=== PATIENT | female | born 1975 | race Caucasian/White ===

== ENCOUNTER 2024-01-30 08:04 | Outpatient (CLI) | payer OTHER, SELFPAY | END 2024-01-30 08:05 | disposition home or self-care (01) | LOC: NFLDREF 02-14 17:02 | PROVIDERS: Visit Provider Physician Assistant | DX: R53.83 Other fatigue (principal); Z13.228 Encounter for screening for other metabolic disorders; Z13.220 Encounter for screening for lipoid disorders; Z13.21 Encounter for screening for nutritional disorder; Z13.29 Encounter for screening for other suspected endocrine disorder | CPT/HCPCS: 80053; 80061; 82306; 84443 ==

== ENCOUNTER 2024-02-17 14:55 | Outpatient (CLI) | payer OTHER, SELFPAY ==
--- NOTE | 2024-02-17 15:20 | CRLHL7_ITS ---
For Patients: As a result of the Century Cures Act, medical imaging exams and procedure reports are released immediately into your electronic medical record. You may view this report before your referring provider. If you have questions, please contact your health care provider. BILATERAL SCREENING MAMMOGRAM WITH COMPUTER-AIDED DETECTION AND TOMOSYNTHESIS TECHNIQUE: CC and MLO views were obtained. These mammographic images have been obtained using full-field digital technique. These mammographic images were interpreted with the benefit of computer-aided detection. Breast Tomosynthesis was used in this interpretation. COMPARISON FILM: 08/18/21, 12/21/18. FINDINGS: The breasts are extremely dense, which lowers the sensitivity of mammography. IMPRESSION: There is no radiographic evidence for malignancy. ASSESSMENT: BI-RADS Category 2: Benign RECOMMENDATION: Routine screening mammogram in 1 year. A lay language report of this examination will be provided to the patient. Arsalan Nieto M.D. Diagnostic Radiologist [email or web address] SP/Dictated by: Arsalan Nieto MD @ 02/27/2024 9:59:00 AM (Electronically Signed)
== END 2024-02-17 14:56 | disposition home or self-care (01) ==
LOC: MAMMO 14:56
PROVIDERS: Visit Provider Physician Assistant
DX: Z12.31 Encounter for screening mammogram for malignant neoplasm of breast (principal); R92.2 Inconclusive mammogram
CPT/HCPCS: 77063; 77067

== ENCOUNTER 2024-02-24 07:31 | Outpatient (CLI) | payer OTHER, SELFPAY ==
--- NOTE | 2024-02-24 08:29 | W.ANESCHARGE ---
Anesthesia Charges Start Date/Time Anesthesia Start Date: 02/24/24 Anesthesia Start Time: 08:25 Stop Date/Time Anesthesia Stop Date: 02/24/24 Anesthesia Stop Time: 08:58
--- NOTE | 2024-02-24 08:58 | W.ANESCHARGE ---
Anesthesia Charges Start Date/Time Anesthesia Start Date: 02/24/24 Anesthesia Start Time: 08:25 Stop Date/Time Anesthesia Stop Date: 02/24/24 Anesthesia Stop Time: 08:58
--- NOTE | 2024-02-28 11:20 | W.ANESCHARGE ---
Anesthesia Charges Start Date/Time Anesthesia Start Date: 02/24/24 Anesthesia Start Time: 08:25 Stop Date/Time Anesthesia Stop Date: 02/24/24 Anesthesia Stop Time: 08:58
== END 2024-02-24 07:32 | disposition home or self-care (01) ==
LOC: OP CLINIC 07:32
PROVIDERS: PCP Physician Assistant; Visit Provider Internal Medicine
DX: Z12.11 Encounter for screening for malignant neoplasm of colon (principal); K63.5 Polyp of colon
CPT/HCPCS: 00811; 45380; 88305; J2704

== ENCOUNTER 2025-08-21 10:47 | Emergency (ER) | payer OTHER, SELFPAY ==
[2025-08-21 10:49] VITALS: BP 114/78; PULSE 72; RESP 18; TEMP 37.2; O2SAT 99
--- OUTSIDE RECORDS SUMMARY | 2025-08-21 10:49 | XMS_ITS | Clinical Summary ---
Author Organization [facility] Address [address] [place] [id number] Phone [email or web address] Care Team Providers Care Librarian Head Name Role Phone Unavailable Primary Care Provider Unavailabl e Immunizations ImmunizationAdministration DatesNext DueInfluenza (Flucelvax) MDCK, PF, quad (CVX-171)05/30/2018Influenza single-dose SYRINGE (Afluria, Fluarix, Fluzone, Flulaval) trivalent (CVX-140)06/28/2016Influenza, (Afluria Fluzone) quad, PF, 6- 35 mo (CVX-161)06/14/2017 Social History Tobacco UseTypesPacks/DayYears UsedDateSmoking Tobacco: Never AssessedIntimate Partner ViolenceAnswerDate RecordedInsults YouNot on file12/09/2020Threatens You Not on file12/09/2020creams at YouNot on file1Physically HurtNot on file12/09/2020Intimate Partner Violence ScoreNot on file12/09/2020tressAnswer Date RecordedStress in your [id number] with StressNot on file 1CommentsUnknownSex and Gender InformationValueDate RecordedSex Assigned at BirthNot on fileLegal ExgTzkxlh36/26/2018 8:09 AM CDTGender Identity Not on fileSexual OrientationNot on file Plan of Treatment Health MaintenanceDue DateLast DoneCommentsCT Aoydczpwrrrk1977Cervical Cancer Screening Combo1977 5008Ojgjjiclvmi1977Colorectal Cancer Screening Combo1977DNA Mceoegbxp1977FIT or FOBT Test1977HPV only / HPV + Pap1977Pap only iyktkrg97 1977 3496Idsnparcvvypw1977Hepatitis B Immunization (1 of 3 - 19+ 3-dose series)01/29/1996Tetanus Diphtheria and Pertussis Immunization (1 - Tdap)01/29/1996Breast Cancer Undpsiueg07/02/2007 Covid-19 Immunization (1 - 2024- season)2025Influenza Immunization (#1) , 06/14/2017, 06/28/2016HIB ImmunizationAged OutNo longer eligible based on patient's age to complete this topicHPV ImmunizationAged OutNo longer eligible based on patient's age to complete this topicHepatitis A ImmunizationAged OutNo longer eligible based on patient's age to complete this topicPneumococcal ImmunizationAged OutNo longer eligible based on patient's age to complete this topicPolio ImmunizationAged OutNo longer eligible based on patient's age to complete this topic
--- NOTE | 2025-08-21 11:18 | ED.GENADULT ---
HPI - General Adult General Chief complaint: Weakness Stated complaint: Heaviness in chest, lost voice, tired, run down Time Seen by Provider: 08/21/25 11:18 History of Present Illness HPI narrative: Patient presents to the emergency department complaining of fatigue. Patient states yesterday she began to feel very fatigued, chest heaviness , and congestion. 50-year-old woman presenting to the emergency department with concern of some chest heaviness and sinus congestion and significant fatigue began yesterday. She is a runner and notes that she would be unable to do that at this point given how she feels. Has not had a fever. No diarrhea. No nausea or vomiting. No rashes. No particular exposures but has been running errands for the holidays. There was however exposure to her son and his new laser etcher. Apparently created a lot of smoke or particulate matter in the home. Does admit that is struggling with fatigue in general which she attributes to premenopausal symptoms. She also started losing her voice yesterday Related Data Previous Rx's ?Medication ?Instructions ?Recorded venlafaxine 150 mg 150 mg PO QDAY #90 caps 11/16/24 capsule,extended release 24 hr hydroxyzine pamoate 25 mg capsule 25 - 50 mg (1 - 2 x 25 mg) PO QHS 07/05/25 #90 caps progesterone micronized 200 mg 200 mg PO .COMPLEX 3 months #36 07/23/25 capsule (Prometrium) caps estradiol 0.05 mg/24 hr semiweekly 1 patch transdermal 2XW #24 ea 09/05/25 transdermal patch Allergies Allergy/AdvReac Type Severity Reaction Status Date / Time No Known Drug Allergies Allergy Verified 08/21/25 10:56 Review of Systems Status of ROS: Reports: 6 or more systems reviewed and unremarkable except as noted in History and below [facility] Medical History History of vaginal delivery Family History Father High cholesterol Mother Osteoporosis Chronic mental illness Social History Narrative: Mechanical Engineering Technologist. . Nonsmoker. 1-2 glasses of wine per week. Exam Narrative: Exam Narrative: Pleasant. NAD. Is mildly laryngitic. No stridor. Neck is supple without lymphadenopathy. Oropharynx with trace erythema posteriorly. Lungs are clear. Heart in regular rate and rhythm without murmur rub or gallop. Abdomen is soft nontender. Extremities are well perfused without edema. No facial swelling or erythema or tenderness. TMs are clear. Does sound congested in the nasopharynx Const: Vital Signs, click to edit/add: Vital Signs - 24 hr 08/21/25 10:49 Temperature 98.9 F Pulse Rate [Right Pulse Oximeter] 72 Respiratory Rate 18 Blood Pressure [Ri ght Upper Arm] 114/78 Pulse Oximetry 99 Oxygen Delivery Me thod Room Air Documenting provider has reviewed patient's vital signs: yes Course Vital Signs Vital signs: Initial Vital Signs Temperature 98.9 F 08/21/25 10:49 Temperature Source Temporal Artery Scan 08/21/25 10:49 Pulse Rate 72 08/21/25 10:49 Pulse Rhythm Regular 08/21/25 10:49 Pulse Strength 3+ Normal 08/21/25 10:49 Respiratory Rate 18 08/21/25 10:49 Blood Pressure 114/78 08/21/25 10:49 Blood Pressure Mean 90 08/21/25 10:49 Blood Pressure Position Sitting 08/21/25 10:49 Pulse Oximetry 99 08/21/25 10:49 Oxygen Delivery Method Room Air 08/21/25 10:49 Vital Signs Temperature 98.9 F 08/21/25 10:49 Pulse Rate 72 08/21/25 10:49 Respiratory Rate 18 08/21/25 10:49 Blood Pressure 114/78 08/21/25 10:49 Pulse Oximetry 99 08/21/25 10:49 Oxygen Delivery Method Room Air 08/21/25 10:49 Temperature 98.9 F 08/21/25 10:49 Pulse Rate 72 08/21/25 10:49 Respiratory Rate 18 08/21/25 10:49 Blood Pressure 114/78 08/21/25 10:49 Pulse Oximetry 99 08/21/25 10:49 Oxygen Delivery Method Room Air 08/21/25 10:49 Medical Decision Making MDM Narrative Medical decision making narrative: Considering community prevalence I would suspect influenza or possibly COVID. Would wait on the swab before proceeding with further evaluation at this point. She does not feel like she needs any interventions otherwise. Swabs are negative. With concern of exposure we could do a chest x-ray looking for some evidence of pulmonary edema though I do not appreciate this on physical exam nor in vitals. There has been concern of persistent fatigue as well. Can initiate this workup here but might require broader fatigue workup in primary care. Differential more immediately would include pulmonary embolus (quite unlikely in this patient I think), pneumothorax, infiltrate among others. Anemia otherwise. Electrolyte abnormalities? Vitamin deficiency? Lyme or similar? Anticipate treating laryngitis. View chest x-ray independently reviewed by me is unremarkable. No pneumothorax, no apparent infiltrate Radiology over-read below INDICATION: Weakness. Chest heaviness COMPARISON: None TECHNIQUE: PA and lateral views of the chest were acquired FINDINGS: TUBES AND LINES: None. HEART AND MEDIASTINUM: The heart size is normal. The mediastinal contour appears normal for patient age. LUNGS AND PLEURAL SPACES: The lungs appear normal.The pleural spaces are unremarkable. OSSEOUS STRUCTURES: Age-appropriate appearance. No acute focal finding. IMPRESSION: No evidence of active pulmonary disease. Dictated by Chato Soni MD @ 08/21/2025 12:25:21 PM Labs are reassuring Stable during time in the emergency department. See patient discharge plan for further discussion Focus on hydration. Consider ibuprofen or acetaminophen. Prescribing however course of prednisone at least for your laryngitis. Diphenhydramine might overcome some triggered wakefulness. If prednisone is not tolerable, can discontinue, discontinue course early if needed or cut dose in half. Prednisone from [facility]. Return for marked increase chest discomfort, worsening shortness of breath, lightheadedness. Lab Data Lab results reviewed: Yes I reviewed the patient's lab results Labs: Lab Results 08/21/25 08/21/25 08/21/25 Range/Units 11:00 12:09 12:26 WBC 9.13 (4.50-11.00) K/uL RBC 4.47 (4.00-5.20) m/uL Hgb 13.2 (12.0-16.0) gm/dL Hct 39.9 (33.0-51.0) % MCV 89 (80-100) fL MCH 30 (26-34) pg MCHC 33 (32-36) gm/dL RDW Coeff of Jenniffer 11.9 (11.5-15.5) % Plt Count 255 (140-440) K/uL Neut % (Auto) 76.8 H (42.0-72.0) % Lymph % (Auto) 13.8 L (20-44) % [place] % (Auto) 8.8 (0.0-11.0) % Eos % (Auto) 0.4 (0.0-7.0) % Baso % (Auto) 0.1 (0.0-3.0) % Neut # (Auto) 7.00 (1.7-7.0) K/uL Lymph # (Auto) 1.30 (0.90-2.90) K/uL [place] # (Auto) 0.80 (0.00-0.90) K/UL Eos # (Auto) 0.04 (0.00-0.50) K/uL Baso # (Auto) 0.01 (0.00-0.30) K/uL Abs Immat Gran (auto) 0.01 (0.00-0.30) K/uL Imm/Tot Granulo (auto) 0.1 % Sodium 135 (135-149) mmol/L Potassium 4.4 (3.6-5.1) mmol/L Chloride 104 (96-114) mmol/L Carbon Dioxide 28 (20-32) mmol/L Anion Gap 3 L (7-15) mEq/L BUN 9 (5-24) mg/dL Creatinine 1.0 (0.5-1.5) mg/dL Estimated GFR 69 ml/min Glucose 83 (60-115) mg/dL Calcium 9.8 (8.4-10.6) mg/dL Total Bilirubin 0.6 (0.1-1.5) mg/dL Direct Bilirubin 0.2 (0.0-0.5) mg/dL AST 31 (12-35) U/L ALT 26 (4-35) U/L Alkaline Phosphatase 60 (40-150) U/L POC Troponin I High Sensi < 2.9 L (2.9-13.0) pg/mL C-Reactive Protein < 0.5 L (0.5-1.0) mg/dL NT-Pro-B Natriuret Pep 144 (See Note) pg/mL Total Protein 7.1 (6.0-8.3) g/dL Albumin 4.3 (3.3-5.0) g/dL SARS-CoV-2 (PCR) Negative SARS-CoV-2 (Negative) Influenza Type A (PCR) Negative PCR FLU A (Negative) Influenza Type B (PCR) Negative PCR FLU B (Negative) RSV (PCR) Negative PCR RSV (Negative) Discharge Plan Discharge Clinical Impression: Laryngitis, Malaise Patient Disposition: Home w/ Parent or Adult Condition: Stable Additional Instructions: Focus on hydration. Consider ibuprofen or acetaminophen. Prescribing however course of prednisone at least for your laryngitis. Diphenhydramine might overcome some triggered wakefulness. If prednisone is not tolerable, can discontinue, discontinue course early if needed or cut dose in half. Prednisone from [facility]. Return for marked increase chest discomfort, worsening shortness of breath, lightheadedness. Prescriptions: No Action venlafaxine 150 mg capsule,extended release 24hr 150 mg PO QDAY Qty: 90 3RF hydroxyzine pamoate 25 mg capsule 25 - 50 mg PO QHS Qty: 90 3RF progesterone micronized [Prometrium] 200 mg capsule 200 mg PO .COMPLEX 90 Days Qty: 36 0RF Rx Instructions: 200 mg orally; Take 1 capsule at bedtime on cycle days 1-12 for 3 months estradiol 0.05 mg/24 hr patch semiweekly 1 patch transdermal 2XW Qty: 24 0RF Rx Instructions: 1 patch twice weekly Follow Up/Referrals: Provider,Not a Local [Non-Staff, Family Practice] Stand Alone Forms: MyHealth Info Instructions
[2025-08-21 12:00] LABS: PCR FLU A Negative PCR FLU A (Negative); PCR FLU B Negative PCR FLU B (Negative); PCR RSV Negative PCR RSV (Negative); SARS PCR* Negative SARS-CoV-2 (Negative)
--- NOTE | 2025-08-21 12:09 | CRLHL7_ITS ---
For Patients: As a result of the Century Cures Act, medical imaging exams and procedure reports are released immediately into your electronic medical record. You may view this report before your referring provider. If you have questions, please contact your health care provider. INDICATION: Weakness. Chest heaviness COMPARISON: None TECHNIQUE: PA and lateral views of the chest were acquired FINDINGS: TUBES AND LINES: None. HEART AND MEDIASTINUM: The heart size is normal. The mediastinal contour appears normal for patient age. LUNGS AND PLEURAL SPACES: The lungs appear normal.The pleural spaces are unremarkable. OSSEOUS STRUCTURES: Age-appropriate appearance. No acute focal finding. IMPRESSION: No evidence of active pulmonary disease. Dictated by Chato Soni MD @ 08/21/2025 12:25:21 PM (Electronically Signed)
[2025-08-21 12:29] LABS: Hematocrit* 39.9 % (33.0-51.0); Hemoglobin* 13.2 gm/dL (12.0-16.0); Immature Granulocytes Abs Auto 0.01 K/uL (0.00-0.30); Immature Granulocytes Pct Auto 0.1 %; Mean Corpuscular HGB Conc 33 gm/dL (32-36); Mean Corpuscular Hemoglobin 30 pg (26-34); Mean Corpuscular Volume 89 fL (80-100); RDW Coefficient of Variation % 11.9 % (11.5-15.5); Red Blood Count* 4.47 m/uL (4.00-5.20); White Blood Count* 9.13 K/uL (4.50-11.00)
[2025-08-21 12:31] LABS: Lymphocytes Absolute Auto 1.30 K/uL (0.90-2.90); Slide Review Reflex No
[2025-08-21 12:55] LABS: Albumin* 4.3 g/dL (3.3-5.0); Chloride* 104 mmol/L (96-114); Potassium* 4.4 mmol/L (3.6-5.1); Sodium* 135 mmol/L (135-149)
[2025-08-21 12:57] LABS: Blood Urea Nitrogen* 9 mg/dL (5-24); Creatinine* 1.0 mg/dL (0.5-1.5); Estimated Glomerular Filt Rate 69 ml/min
[2025-08-21 12:58] LABS: Alanine Aminotransferase* 26 U/L (4-35); Alkaline Phosphatase* 60 U/L (40-150); Anion Gap 3 mEq/L (7-15); Aspartate Amino Transferase* 31 U/L (12-35); Bilirubin Direct* 0.2 mg/dL (0.0-0.5); Bilirubin Total* 0.6 mg/dL (0.1-1.5); Carbon Dioxide* 28 mmol/L (20-32); Total Protein* 7.1 g/dL (6.0-8.3)
[2025-08-21 12:59] LABS: Calcium* 9.8 mg/dL (8.4-10.6); Glucose* 83 mg/dL (60-115)
[2025-08-21 13:07] LABS: NT Pro B Type NatriureticPept* 144 pg/mL (See Note)
== END 2025-08-21 13:39 | disposition home or self-care (01) ==
PROVIDERS: Emergency Provider Family Medicine; PCP Physician Assistant
DX: J04.0 Acute laryngitis (principal); R53.81 Other malaise; R07.89 Other chest pain
CPT/HCPCS: 36415; 71046; 80048; 80076; 83880; 84484; 85025; 86140; 87631; 99284